=== PATIENT | female | born 1960 | race African-American/Black ===

== ENCOUNTER → 2021-02-05 | Outpatient (CLI) | payer BC ==
[~2021-02-05] MED LIST: CRESTOR40 MG PO; FOSAMAX70 MG PO; IBU800 MG PO; LATANOPROST 0.7.5 ML OP; LINZESS145 MCG PO; MULTI-VITAMIN1 EACH PO; ST. JOSEPH ASPI81 M1 PO; TOPROL XL 25 MG25 MG PO; VAGIFEM10 MCG VG; VITAMIN D325 MC6 PO
== END ==
LOC: KOH-I 08:21
DX: R51.9 Headache, unspecified (principal); R42 Dizziness and giddiness; R53.1 Weakness; R93.0 Abnormal findings on diagnostic imaging of skull and head, not elsewhere classified
CPT/HCPCS: 70551

== ENCOUNTER → 2021-03-23 | Day surgery (SDC) | payer BC | END | disposition home or self-care (01) | LOC: OR 06:42 | DX: Z12.11 Encounter for screening for malignant neoplasm of colon (principal); E78.5 Hyperlipidemia, unspecified; Z86.010 Personal history of colon polyps; Z79.82 Long term (current) use of aspirin; Z79.1 Long term (current) use of non-steroidal anti-inflammatories (NSAID); Z79.899 Other long term (current) drug therapy | CPT/HCPCS: J2704; J7030 ==